=== PATIENT | male | born 1965 | race Caucasian/White ===

== ENCOUNTER 2017-07-24 09:47 | Day surgery (SDC) | payer BC ==
[~2017-07-24 09:47] MED LIST: DEXAMETHASONE 4 MG/ML 1 ML INJ; METOCLOPRAMIDE 10 MG INJ; SUCCINYLCHOLINE CHLORIDE 100 MG/5 ML SYG IV
[2017-07-24] MEDS ORDERED: FENTAnyl 50 MCG/ML VIAL (12:13)
[2017-07-24] MEDS ORDERED: MIDAZOLAM 1 MG/ML 2 ML INJ (12:14)
[2017-07-24] MEDS ORDERED: ONDANSETRON 4 MG INJ (12:14)
[2017-07-24] MEDS ORDERED: LIDOCAINE 100 MG SYRINGE (13:34)
[2017-07-24] MEDS ORDERED: PROPOFOL 20 ML (13:34)
[2017-07-24] MEDS ORDERED: SUGAMMADEX SODIUM 200 MG/2 ML VIAL IV (13:35)
[2017-07-24] MEDS: OXYMETAZOLINE 0.05% 15 ML NAS SPRAY NASAL (14:36)
[2017-07-24] MEDS: LIDOCAINE 1%/EPI 30 ML INJ (14:36)
[2017-07-24] MEDS ORDERED: HYDROmorphONE 2 MG/ML SYG (15:29)
== END 2017-07-24 18:38 | disposition home or self-care (01) ==
LOC: SDS 09:47
DX: J34.3 Hypertrophy of nasal turbinates (principal)
CPT/HCPCS: 30520; 88300